=== PATIENT | male | born 1955 | race Caucasian/White ===

== ENCOUNTER → 2017-01-19 | Outpatient (REF) | payer OTHER ==
[~2017-01-19] MED LIST: CIPR500T19; FLAG500T; LOPI600T; NICO21DI4; OXAZ15CA2
[2017-01-19 15:53] LABS: BASO # 0.1 K/mm3 (0.0-0.2); BASO % 1.3 % (0.0-1.0); EOS # 0.6 K/mm3 (0.0-0.50); EOS % 6.7 % (0.0-3.0); LARGE UNSTAINED CELL # 0.2 K/mm3 (0.0-0.4); LARGE UNSTAINED CELL % 2.1 % (0.0-4.0); LYMPH # 2.9 K/mm3 (1.5-4.5); LYMPH % 32.6 % (24.0-44.0); MEAN CORPUSCULAR HEMOGLOBIN 33.9 pg (27.0-33.0); MEAN CORPUSCULAR HGB CONC 34.5 g/dl (32.0-36.5); MEAN CORPUSCULAR VOLUME 98.2 fl (80.0-96.0); MONO # 0.4 K/mm3 (0.0-0.8); MONO % 5.2 % (0.0-5.0); NEUTROPHILS # 4.3 K/mm3 (1.8-7.7); NEUTROPHILS % 52.1 % (36.0-66.0); PLATELET COUNT, AUTOMATED 242 k/mm3 (150-450); RED CELL DISTRIBUTION WIDTH 11.8 % (11.5-14.5); WHITE BLOOD COUNT 8.2 K/mm3 (4.0-10.0)
[2017-01-19 16:10] LABS: ALBUMIN 3.8 GM/DL (3.2-5.2); ALBUMIN/GLOBULIN RATIO 1.15 (1.00-1.93); ALKALINE PHOSPHATASE 46 U/L (45-117); ALT/SGPT 15 U/L (12-78); ANION GAP 5 MEQ/L (8-16); AST/SGOT 11 U/L (15-37); BILIRUBIN,TOTAL 0.3 MG/DL (0.2-1.0); BLOOD UREA NITROGEN 10 MG/DL (7-18); CALCIUM LEVEL 8.6 MG/DL (8.8-10.2); CARBON DIOXIDE LEVEL 32 MEQ/L (21-32); CHLORIDE LEVEL 94 MEQ/L (98-107); CHOLESTEROL LEVEL 140 MG/DL (<200); CREATININE FOR GFR 0.96 MG/DL (0.70-1.30); GLOMERULAR FILTRATION RATE > 60.0 (>49); GLUCOSE, FASTING 86 MG/DL (80-110); POTASSIUM SERUM 3.7 MEQ/L (3.5-5.1); SODIUM LEVEL 131 MEQ/L (136-145); TOTAL PROTEIN 7.1 GM/DL (6.4-8.2); TRIGLYCERIDES LEVEL 106 MG/DL (<150)
== END ==
LOC: M LABDRAW1 15:43
PROVIDERS: ATTEND Emergency Medicine
DX: E78.2 Mixed hyperlipidemia (principal); I10 Essential (primary) hypertension

== ENCOUNTER → 2018-02-24 | Outpatient (REF) | payer OTHER ==
[2018-02-24 11:03] LABS: BASO # 0.1 10^3/uL (0.0-0.2); EOS # 0.5 10^3/uL (0.0-0.50); EOS % 5.4 % (0.0-3.0); HEMATOCRIT 37.9 % (42.0-52.0); HEMOGLOBIN 13.3 g/dl (13.5-17.5); IMMATURE GRANULOCYTE % 0.3 % (0-3.0); LYMPH # 3.5 10^3/uL (1.5-4.5); LYMPH % 37.8 % (24.0-44.0); MEAN CORPUSCULAR HEMOGLOBIN 33.1 pg (27.0-33.0); MEAN CORPUSCULAR HGB CONC 35.1 g/dl (32.0-36.5); MEAN CORPUSCULAR VOLUME 94.3 fl (80.0-96.0); MONO # 0.5 10^3/uL (0.0-0.8); MONO % 5.4 % (0.0-5.0); NEUTROPHILS # 4.6 10^3/uL (1.8-7.7); NEUTROPHILS % 50.1 % (36.0-66.0); PLATELET COUNT, AUTOMATED 229 10^3/uL (150-450); RED BLOOD COUNT 4.02 10^6/uL (4.30-6.10); RED CELL DISTRIBUTION WIDTH 11.9 % (11.5-14.5); WHITE BLOOD COUNT 9.1 10^3/uL (4.0-10.0)
[2018-02-24 11:37] LABS: ALBUMIN 4.1 GM/DL (3.2-5.2); ALBUMIN/GLOBULIN RATIO 1.32 (1.00-1.93); ALKALINE PHOSPHATASE 46 U/L (45-117); ALT/SGPT 20 U/L (12-78); ANION GAP 7 MEQ/L (8-16); AST/SGOT 14 U/L (7-37); BILIRUBIN,TOTAL 0.5 MG/DL (0.2-1.0); BLOOD UREA NITROGEN 16 MG/DL (7-18); CALCIUM LEVEL 8.7 MG/DL (8.8-10.2); CARBON DIOXIDE LEVEL 28 MEQ/L (21-32); CHLORIDE LEVEL 101 MEQ/L (98-107); CHOLESTEROL LEVEL 178 MG/DL (<200); CHOLESTEROL RISK RATIO 3.358 (<5); CREATININE FOR GFR 1.11 MG/DL (0.70-1.30); GLOMERULAR FILTRATION RATE > 60.0 (>49); GLUCOSE, FASTING 99 MG/DL (70-100); HDL CHOLESTEROL 53 MG/DL (>40); LDL CHOLESTEROL 101.6 MG/DL (<100); NON-HDL-C 125 MG/DL; POTASSIUM SERUM 3.9 MEQ/L (3.5-5.1); SODIUM LEVEL 136 MEQ/L (136-145); TOTAL PROTEIN 7.2 GM/DL (6.4-8.2); TRIGLYCERIDES LEVEL 117 MG/DL (<150)
== END ==
LOC: M LABDRAW1 10:56
DX: I10 Essential (primary) hypertension (principal); E78.2 Mixed hyperlipidemia
CPT/HCPCS: 80053

== ENCOUNTER → 2018-10-09 | Outpatient (REF) | payer OTHER ==
[2018-10-09 12:45] LABS: URIC ACID 6.3 MG/DL (3.5-7.2)
[2018-10-09 12:45] LABS: C REACTIVE PROTEIN QUANTITATIV < 0.30 MG/DL (0.00-0.30); RHEUMATOID FACTOR QUANT < 10.0 IU/ML (<15.0)
[2018-10-09 12:53] LABS: TOTAL 25(OH) VITAMIN D 33.8 NG/ML (30.0-100.0)
[2018-10-11 00:50] LABS: ANTINUCLEAR ANTIBODIES DIRECT Negative (Negative); Lyme Disease IgG/IgM Antibodie <0.91 ISR (0.00-0.90); Lyme Disease IgM Ab Quantitati <0.80 index (0.00-0.79)
== END ==
LOC: M LABDRAW1 10:11
DX: M25.50 Pain in unspecified joint (principal)

== ENCOUNTER → 2018-10-12 | Outpatient (CLI) | payer BC, OTHER | LOC: M RAD 07:33 | DX: Z12.2 Encounter for screening for malignant neoplasm of respiratory organs (principal); Z87.891 Personal history of nicotine dependence; I25.10 Atherosclerotic heart disease of native coronary artery without angina pectoris | CPT/HCPCS: G0297 ==

== ENCOUNTER → 2019-01-17 | Outpatient (REF) | payer OTHER ==
[2019-01-17 12:44] LABS: ALBUMIN 4.1 GM/DL (3.2-5.2); ALT/SGPT 18 U/L (12-78); BILIRUBIN,TOTAL 0.3 MG/DL (0.2-1.0); BLOOD UREA NITROGEN 12 MG/DL (7-18); CALCIUM LEVEL 9.2 MG/DL (8.8-10.2); CARBON DIOXIDE LEVEL 30 MEQ/L (21-32); CHLORIDE LEVEL 97 MEQ/L (98-107); CHOLESTEROL LEVEL 198 MG/DL (<200); CHOLESTEROL RISK RATIO 4.714 (<5); CREATININE FOR GFR 1.16 MG/DL (0.70-1.30); GLOMERULAR FILTRATION RATE > 60.0 (>49); GLUCOSE, FASTING 83 MG/DL (70-100); HDL CHOLESTEROL 42 MG/DL (>40); LDL CHOLESTEROL 106 MG/DL (<100); NON-HDL-C 156 MG/DL; POTASSIUM SERUM 3.9 MEQ/L (3.5-5.1); SODIUM LEVEL 135 MEQ/L (136-145); TOTAL PROTEIN 7.3 GM/DL (6.4-8.2); TRIGLYCERIDES LEVEL 248 MG/DL (<150)
[2019-01-17 12:45] LABS: BASO # 0.1 10^3/uL (0.0-0.2); BASO % 1.1 % (0.0-1.0); EOS # 0.5 10^3/uL (0.0-0.50); EOS % 5.2 % (0.0-3.0); HEMATOCRIT 40.7 % (42.0-52.0); LYMPH # 3.8 10^3/uL (1.5-4.5); LYMPH % 40.9 % (24.0-44.0); MEAN CORPUSCULAR HEMOGLOBIN 33.2 pg (27.0-33.0); MEAN CORPUSCULAR HGB CONC 34.4 g/dl (32.0-36.5); MEAN CORPUSCULAR VOLUME 96.4 fl (80.0-96.0); MONO # 0.6 10^3/uL (0.0-0.8); MONO % 6.6 % (0.0-5.0); NEUTROPHILS # 4.2 10^3/uL (1.8-7.7); PLATELET COUNT, AUTOMATED 237 10^3/uL (150-450); RED BLOOD COUNT 4.22 10^6/uL (4.30-6.10); WHITE BLOOD COUNT 9.2 10^3/uL (4.0-10.0)
== END ==
LOC: M LABDRAW1 11:53
PROVIDERS: ATTEND Physician Assistant Medical
DX: I10 Essential (primary) hypertension (principal); E78.2 Mixed hyperlipidemia; K21.9 Gastro-esophageal reflux disease without esophagitis

== ENCOUNTER → 2019-07-06 | Outpatient (REF) | payer MEDICARE, OTHER ==
[2019-07-06 13:10] LABS: BLOOD UREA NITROGEN 10 MG/DL (7-18); CALCIUM LEVEL 9.4 MG/DL (8.8-10.2); CARBON DIOXIDE LEVEL 28 MEQ/L (21-32); CHLORIDE LEVEL 102 MEQ/L (98-107); CHOLESTEROL LEVEL 186 MG/DL (<200); CREATININE FOR GFR 1.18 MG/DL (0.70-1.30); GLOMERULAR FILTRATION RATE > 60.0 (>49); GLUCOSE, FASTING 114 MG/DL (70-100); HDL CHOLESTEROL 40 MG/DL (>40); LDL CHOLESTEROL 111 MG/DL (<100); NON-HDL-C 146 MG/DL; POTASSIUM SERUM 3.7 MEQ/L (3.5-5.1); SODIUM LEVEL 139 MEQ/L (136-145); TRIGLYCERIDES LEVEL 175 MG/DL (<150)
== END ==
LOC: M LABDRAW1 11:56
PROVIDERS: ATTEND Physician Assistant Medical
DX: E78.2 Mixed hyperlipidemia (principal)

== ENCOUNTER → 2020-01-03 | Outpatient (CLI) | payer MEDICARE, BC, OTHER ==
[~2020-01-03] MED LIST changes: +LISI-542 PO; +NEUR800T PO; +OMEP40CA97 PO
[2020-01-03 08:07] LABS: HEMATOCRIT 41.5 % (42.0-52.0); HEMOGLOBIN 14.6 g/dl (13.5-17.5); MEAN CORPUSCULAR HEMOGLOBIN 32.4 pg (27.0-33.0); MEAN CORPUSCULAR HGB CONC 35.2 g/dl (32.0-36.5); MEAN CORPUSCULAR VOLUME 92.2 fl (80.0-96.0); PLATELET COUNT, AUTOMATED 235 10^3/uL (150-450); WHITE BLOOD COUNT 9.6 10^3/uL (4.0-10.0)
[2020-01-03 08:38] LABS: BLOOD UREA NITROGEN 6 MG/DL (7-18); CALCIUM LEVEL 9.1 MG/DL (8.8-10.2); CARBON DIOXIDE LEVEL 32 MEQ/L (21-32); CHLORIDE LEVEL 98 MEQ/L (98-107); CREATININE FOR GFR 1.08 MG/DL (0.70-1.30); GLOMERULAR FILTRATION RATE > 60.0 (>49); GLUCOSE, FASTING 86 MG/DL (70-100); POTASSIUM SERUM 3.5 MEQ/L (3.5-5.1); SODIUM LEVEL 135 MEQ/L (136-145)
--- NOTE | 2020-01-03 22:10 | ECGEPIP ---
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 No prior ECG available for comparison at the time of interpretation. Electronically Signed on 01-03-2020 22:09:35 EST by Edgar Patel
== END ==
LOC: M LAB 07:28
PROVIDERS: ATTEND Orthopaedic Surgery
DX: Z01.818 Encounter for other preprocedural examination (principal); S43.432D Superior glenoid labrum lesion of left shoulder, subsequent encounter

== ENCOUNTER 2020-01-16 08:18 | Day surgery (SDC) | payer MEDICARE, BC, OTHER ==
[~2020-01-16] VITALS: Ht 177.8 cm; Wt 111.0 kg
[~2020-01-16 08:18] MED LIST changes: +ATEN50TA2 PO; +LIDOCAINE 1% MDV 20ML VIAL SQ PRN; +LISI20TA20 PO; +LR 1,000 ML IV ONE; +OXYC-517 PO; +ceFAZolin SOD 2 GM in IV 1 EA IV ONE
[2020-01-16] MEDS ORDERED: ROPIvacaine 0.5% 30 ML INJECTION (J2795 PER 1MG) ONE (08:19)
[2020-01-16] MEDS ORDERED: LIDOCAINE 1% MDV 20ML VIAL ONE (08:19)
[2020-01-16] MEDS ORDERED: dexameTHASONE 10 MG/1 ML VIAL PRES.FREE (J1100) ONE (08:19)
[2020-01-16] MEDS ORDERED: LIDOCAINE 2% INJ 100 MG/5 ML SDV (FOR ANES.) As Ordered ONE (08:45)
[2020-01-16] MEDS ORDERED: fentaNYL 250 MCG/5 ML INJECTION (J3010) As Ordered ONE (08:45)
[2020-01-16] MEDS ORDERED: ROCURONIUM BROMIDE 50 MG/5 ML VIAL As Ordered ONE (08:45)
[2020-01-16] MEDS ORDERED: propofoL 200 MG/20 ML VIAL As Ordered ONE (08:45)
[2020-01-16] MEDS ORDERED: MIDAZOLAM INJ 2 MG/2 ML VIAL (J2250) As Ordered ONE ×2 (08:46→10:39)
[2020-01-16] MEDS ORDERED: fentaNYL 100 MCG/2 ML INJECTION (J3010) As Ordered ONE (10:39)
[2020-01-16] MEDS: fentaNYL 100 MCG/2 ML INJECTION (J3010) IV PRN ×2 (10:56→11:10)
[2020-01-16] MEDS: MIDAZOLAM INJ 2 MG/2 ML VIAL (J2250) IV PRN ×2 (10:56→11:00)
[2020-01-16] MEDS ORDERED: EPINEPHrine 1MG/ML INJ 30ML MD-VIAL As Ordered ONE (11:24)
[2020-01-16] MEDS ORDERED: LIDOCAINE 1% MDV 20ML VIAL As Ordered ONE (12:16)
[2020-01-16] MEDS ORDERED: ONDANSETRON 4MG/2ML VIAL (J2405) As Ordered ONE (12:43)
[2020-01-16] MEDS ORDERED: dexameTHASONE 4 MG/ML 1ML VIAL (J1100) As Ordered ONE (12:43)
[2020-01-16] MEDS ORDERED: KETOROLAC 60 MG/2 ML VIAL (J1885) As Ordered ONE (12:43)
[2020-01-16] MEDS ORDERED: ACETAMINOPHEN 1000MG 100ML IV BTL (OFIRMEV) (J0131 PER 10MG) As Ordered ONE (12:43)
[2020-01-16] MEDS ORDERED: SUGAMMADEX SODIUM 500 MG/5 ML VIAL (BRIDION) As Ordered ONE (13:03)
[2020-01-16] MEDS ORDERED: LR 1,000 ML IV SCH (14:15)
[2020-01-16 15:15] VITALS: BP 165/79
--- NOTE | 2020-01-21 07:48 | RO ---
DATE OF PROCEDURE: 01/16/2020 PREOPERATIVE DIAGNOSES: 1. Left shoulder partial thickness rotator cuff tear. 2. Left shoulder impingement. 3. Left shoulder superior labral tear. 4. Left shoulder AC joint arthritis. POSTOPERATIVE DIAGNOSES: 1. Left shoulder partial thickness rotator cuff tear. 2. Left shoulder impingement. 3. Left shoulder superior labral tear. 4. Left shoulder AC joint arthritis. PROCEDURE: 1. Left shoulder arthroscopic rotator cuff debridement. 2. Left shoulder arthroscopic subacromial decompression including acromioplasty. 3. Left shoulder open subpectoral biceps tenodesis. 4. Left shoulder arthroscopic distal clavicle excision. SURGEON: Dr. Ryan Blankenship. PULP MILL OPERATOR: PENNY Ramos ANESTHESIA: General with preoperative nerve block. IV FLUIDS: Lactated Ringer's. ESTIMATE BLOOD LOSS: 10 mL. IMPLANTS: Arthrex partial BicepsButton times one. CLOSURE: Nylon and Monocryl. DESCRIPTION OF PROCEDURE: The patient was identified in the preoperative holding area. The left shoulder was marked by myself. He had an interscalene nerve block by anesthesia. He was brought to the operating room, placed supine on a well-padded operating room (OR)) table with a beanbag. General anesthesia was induced. Exam under anesthesia revealed 170 degrees of forward flexion 80 of external rotation with his arm at his side and no increased anterior-posterior translation. He was then placed in the right side down lateral decubitus position with an axillary roll and all bony prominences well padded. He had bilateral Venodyne boots for deep venous thrombosis (DVT) prophylaxis. The left arm was placed into the Arthrex star sleeve lateral decubitus traction saul with 10 pounds of traction. The left shoulder was then prepped and draped in normal sterile fashion with Chloraprep. Prior to incision, he received appropriate IV antibiotics. Time-out was then performed per hospital protocol. Zen Molina was present for the entire procedure and participated all essential portions procedure. This included patient positioning, draping, holding the arthroscope, providing traction to the shoulder, holding retractors during the biceps tenodesis, assisting with the whip stitching of the tendon and a wound closure. He also assisted with passing instrument, performed the final wound closure applied the dressing and sling. The left shoulder was insufflated with lactated Ringer's. Standard posterior viewing portal made with the 11-blade. 30 degrees arthroscope was introduced into the joint. Diagnostic arthroscopy carried out. There was a small area of chondromalacia in the central glenoid, otherwise, the glenohumeral joint was in good condition. There was fraying of the anterior superior and superior labrum. This extended into the long head of the biceps where there was a superior labral tear. There was there was no significant tearing of the articular surface of his rotator cuff. Posterior and inferior labrum intact. Subscapularis was intact. An anterior working portal was established in the rotator interval and on probing of the long head of the biceps when it was brought into the joint, there was areas of hyperemia and tenosynovitis. Based on preoperative symptoms and intraoperative findings, biceps tenotomy followed by tenodesis was indicated. I performed a tenotomy with a meniscal biter just off the superior labrum. The stump was debrided with the shaver. I also debrided the superior and anterior labrum with the shaver. Chondroplasty of the glenoid with a shaver. There was no lift off of the subscapularis doing the posterior lever push maneuver. I then proceed with an open biceps tenodesis. An incision was made a 15 blade just lateral to the axilla and dissection with Metzenbaum scissors down to the biceps fascia which was carefully opened with scissors. The right angle clamp was used to dissect out the long head of biceps and that was retrieved uneventfully. There was some flattening consistent with some interstitial tearing of the biceps. I then opened the proximal biceps tenodesis kit from Arthrex. A running locking whip stitch placed with the FiberLoop. Excess tendon cut and sent to pathology. Sutures were loaded through the tenodesis button per routine. A spade tip drill was used to create a unicortical drill hole within the bicipital groove and excess bony debris removed with irrigation. The button was passed through the drill hole on the director of safety. Sutures were toggled to flip the button and dock the tendon along the bicipital groove nicely. The curve-free needle was used to pass one limb of suture back to the tendon. Knots were tied by hand to lock the construct in place. This nicely restored the resting tension of the biceps. The incision was re-irrigated then closed in layered fashion with #2-0 Vicryl, #2-0 Vicryl and a running Monocryl. At the end of the case, Steri-Strips were placed. I also injected 10 mL of 1% lidocaine without epinephrine for local anesthetic. The arthroscope was now placed in the subacromial space where there was moderate bursitis and via a lateral working portal, I performed a bursectomy with shaver and cautery. There was low grade partial thickness bursal-sided tearing of the supraspinatus. This was carefully debrided with the shaver. There were no high-grade tears. I estimated that the degree tearing was less than 15%. There was a moderate size subacromial spur. The coracoacromial (CA) ligament was partially released and then an acromioplasty was performed with a bur. I also used the bur to remove a spur on the inferior aspect of the acromion at the acromioclavicular (AC) joint. I then proceed with an arthroscopic distal clavicle excision. Through the anterior portal, soft tissue from the AC joint was cleared out. There was [id number] contact posteriorly. The bur was used to remove approximately 6 mm. The arthroscope was intermittently placed in the anterior portal to get a direct view and ensure no posterior-superior bone remained. The shoulder was then irrigated and drained. Portals closed nylon suture. Bulky sterile dressing applied. He was carefully placed into the shoulder mobilizer then extubated, transferred to postanesthesia care unit (PACU) in stable condition. Complications: none.
== END 2020-01-16 15:20 | disposition home or self-care (01) ==
LOC: M SDC 08:18
PROVIDERS: ATTEND Orthopaedic Surgery
DX: M75.102 Unspecified rotator cuff tear or rupture of left shoulder, not specified as traumatic (principal); M25.812 Other specified joint disorders, left shoulder; S43.432A Superior glenoid labrum lesion of left shoulder, initial encounter; M19.012 Primary osteoarthritis, left shoulder; I10 Essential (primary) hypertension; K44.9 Diaphragmatic hernia without obstruction or gangrene; K21.9 Gastro-esophageal reflux disease without esophagitis; M54.5 Low back pain; G62.9 Polyneuropathy, unspecified; F17.210 Nicotine dependence, cigarettes, uncomplicated; Z88.6 Allergy status to analgesic agent; Z79.899 Other long term (current) drug therapy; Z79.891 Long term (current) use of opiate analgesic
CPT/HCPCS: 23430; 29807; 29822; 29824; 29826; 64415; 88304; C1713; J0131; J0690; J1100; J2250; J2405; J2795; J3010

== ENCOUNTER → 2021-06-12 | Outpatient (REF) | payer MEDICARE, OTHER, BC ==
[~2021-06-12] MED LIST changes: -LIDOCAINE 1% MDV 20ML VIAL SQ PRN; -LISI-542 PO; +LISI-898 PO; -LR 1,000 ML IV ONE; +OMEP40CA4 PO; -OMEP40CA97 PO; -ceFAZolin SOD 2 GM in IV 1 EA IV ONE
[2021-06-12 11:26] LABS: BASO # 0.1 10^3/uL (0.0-0.2); BASO % 0.9 % (0.0-1.0); EOS # 0.5 10^3/uL (0.0-0.5); EOS % 4.8 % (0.0-3.0); HEMATOCRIT 42.5 % (42.0-52.0); HEMOGLOBIN 14.3 g/dl (13.5-17.5); LYMPH # 3.3 10^3/uL (1.5-5.0); LYMPH % 30.1 % (24.0-44.0); MEAN CORPUSCULAR HEMOGLOBIN 31.8 pg (27.0-33.0); MEAN CORPUSCULAR HGB CONC 33.6 g/dl (32.0-36.5); MEAN CORPUSCULAR VOLUME 94.4 fl (80.0-96.0); MONO # 0.6 10^3/uL (0.0-0.8); MONO % 5.9 % (2.0-8.0); NEUTROPHILS # 6.3 10^3/uL (1.5-8.5); PLATELET COUNT, AUTOMATED 243 10^3/uL (150-450); WHITE BLOOD COUNT 10.8 10^3/uL (4.0-10.0)
[2021-06-12 11:48] LABS: ALBUMIN 3.7 GM/DL (3.2-5.2); ALT/SGPT 18 U/L (12-78); BILIRUBIN,TOTAL 0.3 MG/DL (0.2-1.0); BLOOD UREA NITROGEN 13 MG/DL (7-18); CARBON DIOXIDE LEVEL 30 MEQ/L (21-32); CHLORIDE LEVEL 100 MEQ/L (98-107); CHOLESTEROL LEVEL 158 MG/DL (<200); CHOLESTEROL RISK RATIO 4.514 (<5); CREATININE FOR GFR 1.13 MG/DL (0.70-1.30); GLOMERULAR FILTRATION RATE > 60.0 (>49); GLUCOSE, FASTING 86 MG/DL (70-100); HDL CHOLESTEROL 35 MG/DL (>40); LDL CHOLESTEROL 80 MG/DL (<100); NON-HDL-C 123 MG/DL; POTASSIUM SERUM 4.5 MEQ/L (3.5-5.1); SODIUM LEVEL 137 MEQ/L (136-145); TOTAL PROTEIN 6.7 GM/DL (6.4-8.2); TRIGLYCERIDES LEVEL 214 MG/DL (<150)
== END ==
LOC: M LABWUC 10:41
PROVIDERS: ATTEND Family Medicine
DX: I10 Essential (primary) hypertension (principal)

== ENCOUNTER → 2021-07-29 | Outpatient (CLI) | payer MEDICARE, BC, OTHER ==
--- NOTE | 2021-07-29 08:31 | REP ---
INDICATION: NICOTINE DEPENDENCE. COMPARISON: Multiple the latest 10/12/2018 a low-dose screening exam TECHNIQUE: Axial noncontrast images from the thoracic inlet to the upper abdomen using low-dose lung screening technique (LDCT). As per the protocol only lung window images were sent to the read station for interpretation. FINDINGS: The right lower lobe pleural based asymmetric density is unchanged. There is a new 5 mm size nodule in the right upper lobe abutting a pulmonary artery. There is mild cylindrical bronchiectasis. Grossly, the mediastinum and pulmonary mo are unchanged. Grossly, the imaged upper abdomen and imaged osseous structures are unchanged. IMPRESSION: There is a new nodule in the right upper lobe as described above. According to the revised Fleischner society criteria this represents a category 3 lesion for which a six-month follow-up CT is recommended. <Electronically signed by Mark Henderson > 07/29/21 0838
== END ==
LOC: M RAD 08:04
PROVIDERS: ATTEND Family Medicine
DX: Z87.891 Personal history of nicotine dependence (principal)

== ENCOUNTER → 2023-01-12 | Outpatient (CLI) | payer MEDICARE, BC, OTHER ==
[~2023-01-12] MED LIST changes: -LISI-898 PO; -LISI20TA20 PO; +LISI20TA37 PO; +LISI5TAB11 PO
== END ==
LOC: M RAD 12:26
PROVIDERS: ATTEND Nurse Practitioner Family
DX: H35.60 Retinal hemorrhage, unspecified eye (principal); H53.8 Other visual disturbances

== ENCOUNTER → 2023-01-26 | Outpatient (CLI) | payer MEDICARE, BC, OTHER ==
[2023-01-26 09:39] LABS: BASO # 0.1 10^3/uL (0.0-0.2); EOS # 0.4 10^3/uL (0.0-0.5); EOS % 4.4 % (0.0-3.0); HEMATOCRIT 42.6 % (42.0-52.0); HEMOGLOBIN 14.4 g/dl (13.5-17.5); LYMPH # 3.4 10^3/uL (1.5-5.0); LYMPH % 35.6 % (24.0-44.0); MEAN CORPUSCULAR HGB CONC 33.8 g/dl (32.0-36.5); MEAN CORPUSCULAR VOLUME 94.7 fl (80.0-96.0); MONO # 0.5 10^3/uL (0.0-0.8); NEUTROPHILS # 5.2 10^3/uL (1.5-8.5); NEUTROPHILS % 53.7 % (36.0-66.0); PLATELET COUNT, AUTOMATED 225 10^3/uL (150-450); WHITE BLOOD COUNT 9.6 10^3/uL (4.0-10.0)
[2023-01-26 09:54] LABS: BILIRUBIN,TOTAL 0.6 MG/DL (0.3-1.2); CALCIUM LEVEL 8.9 MG/DL (8.3-10.6); CHOLESTEROL RISK RATIO 4.14 (<5); CREATININE FOR GFR 1.35 MG/DL (0.70-1.30); HDL CHOLESTEROL 46.8 MG/DL (>40); LDL CHOLESTEROL 116.2 MG/DL (<100); NON-HDL-C 147.2 MG/DL; POTASSIUM SERUM 3.8 MMOL/L (3.5-5.1); TOTAL PROTEIN 6.7 G/DL (5.7-8.2)
[2023-01-26 09:58] LABS: HEMOGLOBIN A1c 5.3 % (4.0-6.0)
== END ==
LOC: M WUC 08:21
PROVIDERS: ATTEND Nurse Practitioner Family
DX: I10 Essential (primary) hypertension (principal); R73.01 Impaired fasting glucose

== ENCOUNTER → 2023-09-26 | Outpatient (CLI) | payer MEDICARE, BC, OTHER ==
[2023-09-26 09:42] LABS: BASO # 0.1 10^3/uL (0.0-0.2); EOS # 0.4 10^3/uL (0.0-0.5); EOS % 4.8 % (0.0-3.0); HEMATOCRIT 43.2 % (42.0-52.0); HEMOGLOBIN 14.6 g/dl (13.5-17.5); LYMPH # 3.5 10^3/uL (1.5-5.0); LYMPH % 40.5 % (24.0-44.0); MEAN CORPUSCULAR HEMOGLOBIN 31.5 pg (27.0-33.0); MEAN CORPUSCULAR HGB CONC 33.8 g/dl (32.0-36.5); MEAN CORPUSCULAR VOLUME 93.3 fl (80.0-96.0); MONO # 0.6 10^3/uL (0.0-0.8); MONO % 6.5 % (2.0-8.0); PLATELET COUNT, AUTOMATED 222 10^3/uL (150-450); RED BLOOD COUNT 4.63 10^6/uL (4.30-6.10); WHITE BLOOD COUNT 8.6 10^3/uL (4.0-10.0)
[2023-09-26 10:04] LABS: HEMOGLOBIN A1c 5.2 % (4.0-6.0)
[2023-09-26 10:17] LABS: ALBUMIN 3.6 G/DL (3.2-5.2); ALKALINE PHOSPHATASE 60 U/L (46-116); ALT/SGPT 17 U/L (7.0-40); AST/SGOT 17 U/L (<34); BILIRUBIN,TOTAL 0.6 MG/DL (0.3-1.2); BLOOD UREA NITROGEN 17 MG/DL (9-23); CALCIUM LEVEL 8.8 MG/DL (8.3-10.6); CARBON DIOXIDE LEVEL 31 MMOL/L (20-31); CHLORIDE LEVEL 103 MMOL/L (98-107); CHOLESTEROL LEVEL 222 MG/DL (<200); CHOLESTEROL RISK RATIO 4.84 (<5); CREATININE FOR GFR 1.26 MG/DL (0.70-1.30); GLOMERULAR FILTRATION RATE > 60.0 (>49); GLUCOSE, FASTING 93 MG/DL (74-106); HDL CHOLESTEROL 45.8 MG/DL (>40); LDL CHOLESTEROL 142.4 MG/DL (<100); NON-HDL-C 176.2 MG/DL; POTASSIUM SERUM 3.7 MMOL/L (3.5-5.1); SODIUM LEVEL 142 MMOL/L (136-145); TOTAL PROTEIN 6.7 G/DL (5.7-8.2); TRIGLYCERIDES LEVEL 169 MG/DL (<150)
== END ==
LOC: M WUC 08:07
PROVIDERS: ATTEND Registered Nurse
DX: Z00.00 Encounter for general adult medical examination without abnormal findings (principal); I10 Essential (primary) hypertension; R73.01 Impaired fasting glucose

== ENCOUNTER → 2024-06-22 | Outpatient (CLI) | payer MEDICARE, BC, OTHER ==
[2024-06-22 13:25] LABS: BASO # 0.1 10^3/uL (0.0-0.2); EOS # 0.4 10^3/uL (0.0-0.5); EOS % 4.4 % (0.0-3.0); HEMATOCRIT 41.8 % (42.0-52.0); HEMOGLOBIN 14.4 g/dl (13.5-17.5); LYMPH # 4.1 10^3/uL (1.5-5.0); LYMPH % 42.2 % (24.0-44.0); MEAN CORPUSCULAR HEMOGLOBIN 31.6 pg (27.0-33.0); MEAN CORPUSCULAR HGB CONC 34.4 g/dl (32.0-36.5); MEAN CORPUSCULAR VOLUME 91.7 fl (80.0-96.0); MONO # 0.5 10^3/uL (0.0-0.8); MONO % 5.2 % (2.0-8.0); NEUTROPHILS # 4.5 10^3/uL (1.5-8.5); PLATELET COUNT, AUTOMATED 213 10^3/uL (150-450); RED BLOOD COUNT 4.56 10^6/uL (4.30-6.10); WHITE BLOOD COUNT 9.7 10^3/uL (4.0-10.0)
[2024-06-22 13:41] LABS: HEMOGLOBIN A1c 5.2 % (4.0-6.0)
[2024-06-22 14:14] LABS: ALBUMIN 3.9 G/DL (3.2-5.2); ALKALINE PHOSPHATASE 68 U/L (46-116); ALT/SGPT 14 U/L (7.0-40); AST/SGOT 11 U/L (<34); BILIRUBIN,TOTAL 0.7 MG/DL (0.3-1.2); BLOOD UREA NITROGEN 16 MG/DL (9-23); CALCIUM LEVEL 8.5 MG/DL (8.3-10.6); CARBON DIOXIDE LEVEL 34 MMOL/L (20-31); CHLORIDE LEVEL 101 MMOL/L (98-107); CHOLESTEROL LEVEL 201 MG/DL (<200); CHOLESTEROL RISK RATIO 5.06 (<5); GLOMERULAR FILTRATION RATE > 60.0 (>42); GLUCOSE, FASTING 102 MG/DL (74-106); HDL CHOLESTEROL 39.7 MG/DL (>40); LDL CHOLESTEROL 135.5 MG/DL (<100); NON-HDL-C 161.3 MG/DL; POTASSIUM SERUM 2.8 MMOL/L (3.5-5.1); SODIUM LEVEL 139 MMOL/L (136-145); TOTAL PROTEIN 6.8 G/DL (5.7-8.2); TRIGLYCERIDES LEVEL 129 MG/DL (<150)
== END ==
LOC: M WUC 08:02
PROVIDERS: ATTEND Registered Nurse
DX: I10 Essential (primary) hypertension (principal); Z79.899 Other long term (current) drug therapy

== ENCOUNTER → 2024-07-10 | Outpatient (CLI) | payer MEDICARE, BC ==
[2024-07-10 08:08] LABS: ALBUMIN 3.7 G/DL (3.2-5.2); ALKALINE PHOSPHATASE 67 U/L (46-116); ALT/SGPT < 9 U/L (7.0-40); AST/SGOT 9 U/L (<34); BILIRUBIN,TOTAL 0.7 MG/DL (0.3-1.2); BLOOD UREA NITROGEN 9 MG/DL (9-23); CALCIUM LEVEL 8.2 MG/DL (8.3-10.6); CARBON DIOXIDE LEVEL 33 MMOL/L (20-31); CHLORIDE LEVEL 105 MMOL/L (98-107); CREATININE FOR GFR 1.13 MG/DL (0.70-1.30); GLOMERULAR FILTRATION RATE > 60.0 (>42); GLUCOSE, FASTING 97 MG/DL (74-106); POTASSIUM SERUM 3.2 MMOL/L (3.5-5.1); SODIUM LEVEL 142 MMOL/L (136-145); TOTAL PROTEIN 6.8 G/DL (5.7-8.2)
== END ==
LOC: M LAB 07:01
PROVIDERS: ATTEND Registered Nurse
DX: E87.6 Hypokalemia (principal)

== ENCOUNTER → 2024-08-03 | Outpatient (CLI) | payer MEDICARE, BC ==
[2024-08-03 11:38] LABS: ALBUMIN 4.1 G/DL (3.2-5.2); ALKALINE PHOSPHATASE 73 U/L (46-116); ALT/SGPT 17 U/L (7.0-40); AST/SGOT 9 U/L (<34); BILIRUBIN,TOTAL 0.4 MG/DL (0.3-1.2); BLOOD UREA NITROGEN 16 MG/DL (9-23); CALCIUM LEVEL 9.3 MG/DL (8.3-10.6); CARBON DIOXIDE LEVEL 29 MMOL/L (20-31); CHLORIDE LEVEL 106 MMOL/L (98-107); CREATININE FOR GFR 1.17 MG/DL (0.70-1.30); GLOMERULAR FILTRATION RATE > 60.0 (>42); GLUCOSE, FASTING 87 MG/DL (74-106); POTASSIUM SERUM 3.8 MMOL/L (3.5-5.1); SODIUM LEVEL 139 MMOL/L (136-145)
== END ==
LOC: M WUC 08:03
PROVIDERS: ATTEND Registered Nurse
DX: E87.6 Hypokalemia (principal)

== ENCOUNTER → 2025-07-03 | Outpatient (CLI) | payer MEDICARE, BC ==
[2025-07-03 12:27] LABS: ALT/SGPT 16.0 U/L (7.0-40); AST/SGOT 24.0 U/L (<34); CALCIUM LEVEL 8.8 MG/DL (8.3-10.6); CARBON DIOXIDE LEVEL 29.0 MMOL/L (20-31); CHLORIDE LEVEL 104.0 MMOL/L (98-107); CHOLESTEROL LEVEL 200.0 MG/DL (<200); CHOLESTEROL RISK RATIO 4.93 (<5); CREATININE FOR GFR 1.27 MG/DL (0.70-1.30); GLOMERULAR FILTRATION RATE 60.4 (>42); LDL CHOLESTEROL 128.3 MG/DL (<100); NON-HDL-C 159.5 MG/DL; POTASSIUM SERUM 4.1 MMOL/L (3.5-5.1); SODIUM LEVEL 141.0 MMOL/L (136-145); TRIGLYCERIDES LEVEL 156.0 MG/DL (<150)
[2025-07-03 12:31] LABS: BASO # 0.1 10^3/uL (0.0-0.2); BASO % 1.0 % (0.0-1.0); EOS # 0.4 10^3/uL (0.0-0.5); EOS % 4.6 % (0.0-3.0); LYMPH # 3.6 10^3/uL (1.5-5.0); LYMPH % 37.4 % (24.0-44.0); MONO # 0.5 10^3/uL (0.0-0.8); MONO % 5.6 % (2.0-8.0); NEUTROPHILS # 5.0 10^3/uL (1.5-8.5); NEUTROPHILS % 51.2 % (36.0-66.0); PLATELET COUNT, AUTOMATED 235 10^3/uL (150-450)
[2025-07-03 13:23] LABS: ESTIMATED AVERAGE GLUCOSE 111.0 MG/DL (60-110)
== END ==
LOC: M WUC 08:11
PROVIDERS: ATTEND Registered Nurse
DX: I10 Essential (primary) hypertension (principal); Z79.899 Other long term (current) drug therapy

== ENCOUNTER 2025-09-04 10:14 | Day surgery (SDC) | payer MEDICARE, BC ==
[~2025-09-04] VITALS: Ht 177.8 cm; Wt 110.4 kg
[~2025-09-04 10:14] MED LIST changes: +ATEN25TA; +POTA-298
[2025-09-04] MEDS ORDERED: LIDOCAINE 2% 100 MG/5 ML SDV (FOR ANES.) As Ordered ONE (11:48)
[2025-09-04 12:11] VITALS: BP 133/61; O2SAT 96
== END 2025-09-04 12:17 | disposition home or self-care (01) ==
LOC: M OPP 10:14
PROVIDERS: ATTEND Surgery
DX: Z12.11 Encounter for screening for malignant neoplasm of colon (principal); R19.5 Other fecal abnormalities; K64.0 First degree hemorrhoids; G47.30 Sleep apnea, unspecified; Z88.6 Allergy status to analgesic agent; Z79.899 Other long term (current) drug therapy; F17.210 Nicotine dependence, cigarettes, uncomplicated